=== PATIENT | male | born 1995 | race Caucasian/White ===

== ENCOUNTER 2021-07-25 13:44 | Observation (INO) | payer OTHER ==
[2021-07-25 14:02] VITALS: BMI 30.8
[2021-07-25 16:00] LABS: BASO % 0.5 % (0-2.0); EOS % 1.9 % (0-4.5); HEMATOCRIT 43.1 % (35.4-49); HEMOGLOBIN 14.7 GM/dL (11.7-16.9); LYMPH % 8.5 % (8-40); MCH 29.6 pg (25.7-33.7); MCHC 34.1 g/dl (32.0-35.9); MEAN CELL VOLUME 86.9 fl (80-96); MEAN PLT VOLUME 8.7 fl (7.5-11.1); MONO % 3.1 % (3.8-10.2); PLATELET COUNT 206 10^3/uL (134-434); RBC 4.97 M/mm3 (4.00-5.60); RDW 13.2 % (11.9-15.9); WHITE BLOOD COUNT 13.5 K/mm3 (4.0-10.0)
[2021-07-25 16:01] LABS: VENOUS BASE EXCESS -0.6 mmol/L (-2-2); VENOUS O2 SATURATION 89.3 % (70-80); VENOUS PCO2 37.7 mmHg (38-52); VENOUS PH 7.414 (7.310-7.410)
[2021-07-25 16:28] LABS: ALBUMIN 4.2 g/dl (3.4-5.0); BLOOD UREA NITROGEN 12.6 mg/dL (7-18); CALCIUM 9.4 mg/dL (8.5-10.1)
[2021-07-25 16:32] LABS: CREATININE 0.8 mg/dL (0.55-1.3)
[2021-07-25 16:33] LABS: BILIRUBIN,TOTAL 0.9 mg/dL (0.2-1); TOT PROT 7.8 g/dl (6.4-8.2)
[2021-07-25] MEDS ORDERED: ENOXAPARIN NA (PORCINE) 100 MG/1 ML DISP.SYRIN SQ ONE ×2 (20:01→20:29)
[2021-07-25 21:00] LABS: INR 1.3 (0.83-1.09)
[2021-07-25 21:03] LABS: ACTIVATED PTT 30.9 SECONDS (25.2-36.5)
[2021-07-26 08:22] LABS: HEMATOCRIT 46.1 % (35.4-49); HEMOGLOBIN 15.4 GM/dL (11.7-16.9); MCH 29.4 pg (25.7-33.7); MCHC 33.5 g/dl (32.0-35.9); MEAN CELL VOLUME 87.7 fl (80-96); MEAN PLT VOLUME 9.1 fl (7.5-11.1); PLATELET COUNT 219 10^3/uL (134-434); RBC 5.25 M/mm3 (4.00-5.60); RDW 13.1 % (11.9-15.9); WHITE BLOOD COUNT 18.5 K/mm3 (4.0-10.0)
[2021-07-26 08:48] LABS: BLOOD UREA NITROGEN 14.3 mg/dL (7-18); CALCIUM 9.6 mg/dL (8.5-10.1)
[2021-07-26 08:52] LABS: CREATININE 0.7 mg/dL (0.55-1.3)
[2021-07-26] MEDS ORDERED: APIXABAN 5 MG TABLET ONE (09:40)
[2021-07-26] MEDS: APIXABAN 5 MG TABLET PO SCH ×2 (09:41→22:20)
[2021-07-26 11:57] LABS: EPI CELLS 5 /uL (0-25.1); HYALINE CASTS 3 /uL (0-3.1); URINE APPEARANCE CLEAR; URINE BACTERIA 0 /uL (0-1359); URINE BILIRUBIN NEGATIVE (NEGATIVE); URINE COLOR DK YELLOW; URINE GLUCOSE (UA) NEGATIVE (NEGATIVE); URINE KETONE 3+ (NEGATIVE); URINE LEUK ESTERASE NEGATIVE (NEGATIVE); URINE NITRITE NEGATIVE (NEGATIVE); URINE PROTEIN 1+ (NEGATIVE); URINE RBC 2 /uL (0-23.9); URINE WBC 4 /uL (0-25.8)
[2021-07-26] MEDS ORDERED: ACETAMINOPHEN 325 MG TABLET (FP) PO PRN (12:12)
[2021-07-26] MEDS ORDERED: PANTOPRAZOLE 40 MG TABLET PO ONE (12:54)
[2021-07-26] MEDS: PANTOPRAZOLE 40 MG TABLET PO SCH (12:56)
[2021-07-27 07:51] LABS: BASO % 0.4 % (0-2.0); EOS % 0.7 % (0-4.5); HEMATOCRIT 42.8 % (35.4-49); HEMOGLOBIN 14.8 GM/dL (11.7-16.9); LYMPH % 25.5 % (8-40); MCH 30.2 pg (25.7-33.7); MCHC 34.5 g/dl (32.0-35.9); MEAN CELL VOLUME 87.5 fl (80-96); MONO % 10.4 % (3.8-10.2); PLATELET COUNT 214 10^3/uL (134-434); RBC 4.89 M/mm3 (4.00-5.60); RDW 13.1 % (11.9-15.9); WHITE BLOOD COUNT 15.2 K/mm3 (4.0-10.0)
[2021-07-27 08:23] LABS: ALBUMIN 4.2 g/dl (3.4-5.0); BLOOD UREA NITROGEN 19.6 mg/dL (7-18); CALCIUM 9.5 mg/dL (8.5-10.1); MAGNESIUM 2.4 mg/dL (1.8-2.4)
[2021-07-27 08:26] LABS: CREATININE 0.9 mg/dL (0.55-1.3)
[2021-07-27 08:28] LABS: BILIRUBIN,TOTAL 1.1 mg/dL (0.2-1); TOT PROT 7.8 g/dl (6.4-8.2)
[2021-07-27] MEDS: PANTOPRAZOLE 40 MG TABLET PO SCH (09:53)
[2021-07-27] MEDS: APIXABAN 5 MG TABLET PO SCH ×2 (09:54→21:23)
[2021-07-28 07:43] LABS: BASO % 0.8 % (0-2.0); EOS % 3.5 % (0-4.5); HEMATOCRIT 39.7 % (35.4-49); HEMOGLOBIN 13.8 GM/dL (11.7-16.9); LYMPH % 40.7 % (8-40); MCH 30.1 pg (25.7-33.7); MCHC 34.7 g/dl (32.0-35.9); MEAN CELL VOLUME 86.9 fl (80-96); MEAN PLT VOLUME 9.1 fl (7.5-11.1); PLATELET COUNT 204 10^3/uL (134-434); RBC 4.57 M/mm3 (4.00-5.60); RDW 13.1 % (11.9-15.9); WHITE BLOOD COUNT 9.4 K/mm3 (4.0-10.0)
[2021-07-28 08:04] LABS: BLOOD UREA NITROGEN 16.8 mg/dL (7-18); MAGNESIUM 2.2 mg/dL (1.8-2.4)
[2021-07-28 08:05] LABS: ALBUMIN 3.7 g/dl (3.4-5.0)
[2021-07-28 08:06] LABS: BILIRUBIN,TOTAL 0.7 mg/dL (0.2-1); TOT PROT 6.8 g/dl (6.4-8.2)
[2021-07-28 08:07] LABS: CREATININE 0.8 mg/dL (0.55-1.3)
[2021-07-28] MEDS: APIXABAN 5 MG TABLET PO SCH ×3 (09:33→21:54)
[2021-07-28] MEDS: PANTOPRAZOLE 40 MG TABLET PO SCH (09:33)
[2021-07-29 06:46] VITALS: TEMP 97.8
[2021-07-29 08:57] VITALS: BP 125/58; PULSE 55
[2021-07-29] MEDS: APIXABAN 5 MG TABLET PO SCH (10:38)
[2021-07-29] MEDS: PANTOPRAZOLE 40 MG TABLET PO SCH (10:38)
[2021-07-29 12:31] LABS: N-TERMINAL BNP 16.6 pg/ml (5-125)
== END 2021-07-29 12:00 | disposition home or self-care (01) ==
LOC: JER 13:44 → JERBED 20:01 → J4W 07-26 22:15
PROVIDERS: ADMIT Hospitalist; ATTEND Nurse Practitioner Acute Care
PROC: 3E023GC Introduction of Other Therapeutic Substance into Muscle, Percutaneous Approach (ICD-10-PCS; principal; 2021-07-25)
DX: I26.94 Multiple subsegmental thrombotic pulmonary emboli without acute cor pulmonale (principal); R50.9 Fever, unspecified; R04.2 Hemoptysis; R05.9 Cough, unspecified; E66.9 Obesity, unspecified; Z68.30 Body mass index [BMI] 30.0-30.9, adult; Z79.01 Long term (current) use of anticoagulants; J18.9 Pneumonia, unspecified organism
CPT/HCPCS: 0241U-QW; 36415; 71045-TC-FY; 71275-TC; 80048; 80053; 80061; 81003; 82803; 82962; 83036; 83605; 83735; 83880; 84443; 84484; 85025; 85027; 85610; 85730; 87040; 87086; 93005; 93010; 93306-TC; 93308; 93970-TC; 94761; 96372; 99285-25; G0378; Q9967